=== PATIENT | female | born 1995 | race Caucasian/White ===

== ENCOUNTER → 2018-02-20 09:30 | Outpatient (CLI) | payer MEDICAID, SELFPAY ==
--- NOTE | 2018-02-20 09:30 | DT_ITS ---
This patient was seen during an EMR downtime February 19, 2018 - February 26, 2018. This patient may have a combination of paper and electronic documentation or all paper documentation. All documentation is viewable within the e-chart portion of [facility] for each patient visit.
== END ==
PROVIDERS: Visit Provider Obstetrics & Gynecology
DX: Z12.4 Encounter for screening for malignant neoplasm of cervix (principal)
CPT/HCPCS: 88175; G0145

== ENCOUNTER → 2018-12-13 13:15 | Outpatient (CLI) | payer MEDICAID, SELFPAY ==
[2018-12-13 17:07] LABS: Chlamydia Trachomatis by PCR Negative (Negative); Neisserai gonorrhoeae by PCR Negative (Negative); Probe Check PASS; Sample Adequacy Control PASS; Specimen Processing Control PASS
== END ==
PROVIDERS: Visit Provider Obstetrics & Gynecology
DX: Z11.3 Encounter for screening for infections with a predominantly sexual mode of transmission (principal)
CPT/HCPCS: 87491; 87591

== ENCOUNTER 2021-11-30 10:04 | Outpatient (CLI) | payer SELFPAY ==
[2021-11-30 12:32] LABS: Vitamin B12 683 pg/mL (211-911); Vitamin D,25 Hydroxy 58.4 ng/mL
[2021-11-30 12:50] LABS: Ferritin 49 ng/mL (8-252); T4 Free Direct 0.97 ng/dL (0.76-1.46); Thyroid Stim Hormone (TSH) 7.76 uIU/mL (0.358-3.74)
[2021-12-02 11:09] LABS: Vitamin D 1,25-Dihydroxy 76.7 pg/mL (19.9-79.3)
[2021-12-02 12:38] LABS: Anti-Nuclear Antibody Test Negative (.)
[2021-12-05 18:07] LABS: Testosterone, % Free 1.95 % (0.50-2.80); Testosterone, Free 0.49 ng/dL (0.10-0.85); Testosterone, Total 25 ng/dL (13-71)
[2021-12-05 21:02] LABS: Androstenedione 90 ng/dL (41-262); Sex Hormone-binding Globulin 39.1 nmol/L (24.6-122.0); Zinc, Plasma or Serum 80 ug/dL (44-115)
== END 2021-11-30 23:59 | disposition home or self-care (01) ==
PROVIDERS: Referring Provider Physician Assistant Medical; Visit Provider Physician Assistant Medical
DX: L65.9 Nonscarring hair loss, unspecified (principal)
CPT/HCPCS: 36415; 82157; 82306; 82607; 82627; 82652; 82728; 82746; 84270; 84402; 84403; 84439; 84443; 84630; 86038; 82626

== ENCOUNTER → 2022-11-09 | Outpatient (CLI) | payer SELFPAY ==
[2022-11-09 10:44] LABS: EXAGEN MAILED SPECIMEN
[2022-11-09 12:36] LABS: Color, Urine Yellow (Yellow); Glucose, Dipstick Normal (Normal); Ketone-Dipstick 5 mg/dl (Negative); Leukocyte Esterase-Dipstick Negative /ul (Negative); Nitrite-Dipstick Negative (Negative); Occult Blood-Urine 10 /ul (Negative); Protein-Dipstick Negative (Negative); Urine Bilirubin Dipstick Negative (Negative); Urine Clarity Sl. Cloudy (Clear); Urine Urobilinogen Normal (Normal); Urine pH 6.5 (5.0 - 8.0)
[2022-11-09 12:41] LABS: Absolute Lymphocyte Count 0.16 X10^3/uL (0.83-4.51); Absolute Neutrophil Count 2.4 X10^3/uL (2.0-7.7); Basophil# 0.01 X10^3/uL; Basophil% 0.4 % (0-1); Eosinophil# 0.01 X10^3/uL; Eosinophils% 0.4 % (0-5); Hematocrit 46.4 % (37-47); Hemoglobin 15.1 g/dL (12.0-15.0); Lymphocyte # 0.16 X10^3/ul (0.83-4.51); Lymphocyte % 5.7 % (19-41); Mean Corp Hgb Conc 32.5 g/dL (32-36); Mean Corpuscular Hgb 29.4 pg (27.0-32.0); Mean Corpuscular Volume 90.4 fL (81-99); Mean Platelet Vol. 10.4 fl (6.2-12.0); Monocyte# 0.19 X10^3/uL; Monocyte% 6.8 % (0-10); NRBC Flagged by Analyzer 0.7 % (0-5); Neutrophil # 2.41 X10^3/uL (2.7-7.7); Neutrophil % 86.3 % (47-70); POSITIVE DIFFERENTIAL YES; Platelet Count 153 K/mm3 (150-450); RBC Distribution Width CV 11.8 % (11.6-14.6); RBC Distribution Width SD 38.6 fl (35.1-43.9); Red Blood Count 5.13 M/mm3 (4.2-5.4); White Blood Count 2.8 K/mm3 (4.4-11.0)
[2022-11-09 12:44] LABS: International Normalized Ratio 1.1; Partial Thromboplast Time 34.7 Seconds (24.1-36.2); Prothrombin Time (Protime)PT. 14.1 SECONDS (11.7-14.9)
[2022-11-09 12:47] LABS: Differential Indicated SCAN CRITERIA MET
[2022-11-09 13:08] LABS: Protein, Urine (Random) 10.6 mg/dL (<11.9); Protein:Creat Ratio 141 mg/g CRE (0-200)
[2022-11-09 13:09] LABS: Differential Comment SCANNED
[2022-11-09 13:17] LABS: ALB/GLOB Ratio 1.1 RATIO (0.9-2.4); AST(SGOT) 17 U/L (15-37); Alanine Aminotransfer ALT/SGPT 21 U/L (13-56); Albumin, Serum 4.2 g/dL (3.2-5.0); Alkaline Phosphatase 65 U/L (45-117); Anion Gap 9 (5-15); BUN 9 mg/dL (7-18); BUN/Creat Ratio 10.4 RATIO (10-20); Calcium,Total 9.4 mg/dL (8.5-10.1); Chloride 102 mmol/L (98-107); Creatinine, Serum 0.86 mg/dL (0.55-1.02); EST Glomerular Filtration Rate 82 mL/min (>60); Est Glom Filt Rate - Afr Amer 100 mL/min (>60); Globulin 3.9 g/dL (2.2-4.2); Glucose 95 mg/dL (74-106); Potassium 3.6 mmol/L (3.5-5.1); Protein, Total 8.1 g/dL (6.4-8.2); Sodium Level 137 mmol/L (136-145)
[2022-11-10 12:19] LABS: Pathologist Review Reviewed
[2022-11-10 15:08] LABS: Dilute Prothrombin Time (dPT) 39.6 sec (0.0-47.6); Dilute Russell Viper Venom 40.5 sec (0.0-47.0); Hexagonal Phase Phospholipid 7 sec (0-11); Hexagonal Phase Phospholipid 2 7 sec (0-11); Thrombin Time 15.1 sec (0.0-23.0); dPT Confirm Ratio 0.94 Ratio (0.00-1.34)
[2022-11-10 22:47] LABS: Thrombin Time 14.9 sec (0.0-23.0)
[2022-11-10 23:07] LABS: Interpretation Comment: (.); PTT-LA 43.8 sec (0.0-43.5)
== END | disposition home or self-care (01) ==
PROVIDERS: Referring Provider Internal Medicine Rheumatology; Visit Provider Internal Medicine Rheumatology
DX: M06.4 Inflammatory polyarthropathy (principal); R76.8 Other specified abnormal immunological findings in serum; E03.9 Hypothyroidism, unspecified
CPT/HCPCS: 36415; 80053; 81002; 82570; 84156; 85025; 85598; 85610; 85670; 85730

== ENCOUNTER → 2022-12-09 | Outpatient (CLI) | payer SELFPAY ==
[2022-12-09 12:37] LABS: Absolute Lymphocyte Count 1.35 X10^3/uL (0.83-4.51); Absolute Neutrophil Count 2.5 X10^3/uL (2.0-7.7); Basophil# 0.02 X10^3/uL; Basophil% 0.5 % (0-1); Eosinophil# 0.17 X10^3/uL; Eosinophils% 3.9 % (0-5); Hematocrit 45.4 % (37-47); Hemoglobin 14.9 g/dL (12.0-15.0); Lymphocyte # 1.35 X10^3/ul (0.83-4.51); Mean Corp Hgb Conc 32.8 g/dL (32-36); Mean Corpuscular Hgb 29.8 pg (27.0-32.0); Mean Corpuscular Volume 90.8 fL (81-99); Mean Platelet Vol. 9.7 fl (6.2-12.0); Monocyte# 0.32 X10^3/uL; Monocyte% 7.4 % (0-10); NRBC Flagged by Analyzer 0 % (0-5); Neutrophil # 2.48 X10^3/uL (2.7-7.7); Platelet Count 229 K/mm3 (150-450); RBC Distribution Width CV 11.9 % (11.6-14.6); RBC Distribution Width SD 39.3 fl (35.1-43.9); White Blood Count 4.4 K/mm3 (4.4-11.0)
== END | disposition home or self-care (01) ==
PROVIDERS: Referring Provider Internal Medicine Rheumatology; Visit Provider Internal Medicine Rheumatology
DX: M05.79 Rheumatoid arthritis with rheumatoid factor of multiple sites without organ or systems involvement (principal); E03.9 Hypothyroidism, unspecified
CPT/HCPCS: 36415; 85025

== ENCOUNTER → 2023-10-10 | Outpatient (CLI) | payer SELFPAY ==
[2023-10-10 12:12] LABS: Absolute Lymphocyte Count 1.57 X10^3/uL (0.83-4.51); Absolute Neutrophil Count 5.3 X10^3/uL (2.0-7.7); Basophil# 0.02 X10^3/uL; Basophil% 0.3 % (0-1); Eosinophils% 2.6 % (0-5); Hematocrit 46.1 % (37-47); Hemoglobin 14.8 g/dL (12.0-15.0); Lymphocyte # 1.57 X10^3/ul (0.83-4.51); Lymphocyte % 20.4 % (19-41); Mean Corp Hgb Conc 32.1 g/dL (32-36); Mean Corpuscular Hgb 29.2 pg (27.0-32.0); Mean Corpuscular Volume 90.9 fL (81-99); Mean Platelet Vol. 9.6 fl (6.2-12.0); Monocyte# 0.57 X10^3/uL; Monocyte% 7.4 % (0-10); NRBC Flagged by Analyzer 0 % (0-5); Neutrophil # 5.31 X10^3/uL (2.7-7.7); Platelet Count 253 K/mm3 (150-450); RBC Distribution Width CV 11.8 % (11.6-14.6); RBC Distribution Width SD 39.1 fl (35.1-43.9); Red Blood Count 5.07 M/mm3 (4.2-5.4); White Blood Count 7.7 K/mm3 (4.4-11.0)
[2023-10-10 12:50] LABS: ALB/GLOB Ratio 0.9 RATIO (0.9-2.4); AST(SGOT) 16 U/L (15-37); Alanine Aminotransfer ALT/SGPT 29 U/L (13-56); Albumin, Serum 3.6 g/dL (3.2-5.0); Alkaline Phosphatase 78 U/L (45-117); Anion Gap 5 (5-15); BUN 10 mg/dL (7-18); BUN/Creat Ratio 13.5 RATIO (10-20); Calcium,Total 9.1 mg/dL (8.5-10.1); Chloride 107 mmol/L (98-107); Creatinine, Serum 0.74 mg/dL (0.55-1.02); EST Glomerular Filtration Rate 98 mL/min (>60); Est Glom Filt Rate - Afr Amer 118 mL/min (>60); Globulin 3.8 g/dL (2.2-4.2); Glucose 85 mg/dL (74-106); Potassium 3.5 mmol/L (3.5-5.1); Protein, Total 7.4 g/dL (6.4-8.2); Sodium Level 138 mmol/L (136-145)
== END | disposition home or self-care (01) ==
PROVIDERS: Referring Provider Internal Medicine Rheumatology; Visit Provider Internal Medicine Rheumatology
DX: M05.79 Rheumatoid arthritis with rheumatoid factor of multiple sites without organ or systems involvement (principal); E03.9 Hypothyroidism, unspecified
CPT/HCPCS: 36415; 80053; 85025